=== PATIENT | male | born 1990 | race Hispanic/Latino ===

== ENCOUNTER 2016-07-18 23:06 | Emergency (ER) | payer OTHER ==
[2016-07-18 23:13] VITALS: BP 130/67; PULSE 92; RESP 16; TEMP 97.9; O2SAT 100
[2016-07-18 23:35] LABS: BASO # 0.1 K/uL (0.0-0.2); BASO % 0.7 % (0.0-2.0); EOS # 1.2 K/uL (0.0-0.7); EOS % 9.8 % (0.0-4.0); HEMATOCRIT 41.6 % (35.0-51.0); LYMPH # 4.8 K/uL (1.0-4.3); LYMPH % 39.1 % (20.0-40.0); MEAN CELL VOLUME 89.3 fl (80.0-94.0); MEAN CORPUSCULAR HEMOGLOBIN 30.7 pg (27.0-31.0); MEAN CORPUSCULAR HGB CONC 34.3 g/dL (33.0-37.0); MEAN PLATELET VOLUME 6.5 fl (7.2-11.7); MONO # 0.8 K/uL (0.0-0.8); MONO % 6.6 % (0.0-10.0); NEUT # 5.3 K/uL (1.8-7.0); NEUT % 43.8 % (50.0-75.0); RED CELL DISTRIBUTION WIDTH 13.7 % (11.5-14.5); WHITE BLOOD COUNT 12.2 K/uL (4.8-10.8)
[2016-07-18 23:44] LABS: ALB/GLOB RATIO 1.2 (1.0-2.1); ALKALINE PHOSPHATASE 78 U/L (38-126); ALT/SGPT 37 U/L (21-72); AST/SGOT 39 U/L (17-59); BILIRUBIN,TOTAL 0.4 mg/dl (0.2-1.3); BLOOD UREA NITROGEN 12 mg/dl (9-20); CALCIUM 9.6 mg/dL (8.4-10.2); CARBON DIOXIDE 24 mmol/L (22-30); CHLORIDE 105 mmol/L (98-107); GFR AFRICAN-AMERICAN > 60; GLUCOSE,RANDOM 104 mg/dL (75-110); POTASSIUM 3.8 MMOL/L (3.6-5.0); SODIUM 145 mmol/l (132-148); TOTAL PROTEIN 7.5 G/DL (6.3-8.2)
--- NOTE | 2016-07-19 00:49 | ED PDOC ---
HPI: Psych/Substance Abuse Time Seen by Provider: 07/18/16 23:13 Chief Complaint (Nursing): Alcohol Ingestion Chief Complaint (Provider): Alcohol Ingestion ED Caveat: Intoxicated History Per: EMS History/Exam Limitations: intoxication Onset/Duration Of Symptoms: Hrs Current Symptoms Are (Timing): Still Present Modifying Factor(s): Alcohol Severity: Moderate Additional Complaint(s): Fernando Boyd is a 24 year old male, with no pertinent past medical history , who presents to the emergency department via EMS due to public intoxication. EMS reports they found him sleeping on the sidewalk. HPI/ROS limited due to intoxication. PMD: none specified Past Medical History Reviewed: Historical Data, Nursing Documentation, Vital Signs Vital Signs: Last Vital Signs Temp 97.9 F 07/18/16 23:10 Pulse 92 H 07/18/16 23:10 Resp 16 07/18/16 23:10 BP 130/67 07/18/16 23:10 Pulse Ox 100 07/18/16 23:10 - Medical History PMH: No Chronic Diseases - Surgical History Surgical History: No Surg Hx - Family History Family History: States: Unknown Family Hx - Social History Alcohol: Occasional Drugs: Denies - Home Medications Home Medications: Ambulatory Orders Medication Instructions Recorded Unobtainable 07/18/16 - Allergies Allergies/Adverse Reactions: Allergies Allergy/AdvReac Type Severity Reaction Status Date / Time No Known Allergies Allergy Verified 07/19/16 05:55 Review of Systems Review Of Systems: ROS cannot be obtained secondary to pt's inabilty to answer questions. (intoxication) Neurological: Positive for: Incoordination, Change in Speech, Altered Mental Status (intoxication) Physical Exam - Reviewed Nursing Documentation Reviewed: Yes Vital Signs Reviewed: Yes - Physical Exam Appears: Positive for: No Acute Distress Head Exam: Positive for: ATRAUMATIC, NORMOCEPHALIC Skin: Positive for: Normal Color, Warm, Dry Eye Exam: Positive for: Normal appearance, EOMI, PERRL Neck: Positive for: Normal, Painless ROM Cardiovascular/Chest: Positive for: Regular Rate, Rhythm. Negative for: Murmur Respiratory: Positive for: Normal Breath Sounds. Negative for: Respiratory Distress Gastrointestinal/Abdominal: Positive for: Normal Exam, Soft. Negative for: Tenderness Neurologic/Psych: Positive for: Gait (unsteady), Other (somnolent, slurred speech, easily arousable). Negative for: Alert, Oriented - Laboratory Results Result Diagrams: 07/18/16 23:29 07/18/16 23:29 - ECG O2 Sat by Pulse Oximetry: 100 (RA) Pulse Ox Interpretation: Normal Medical Decision Making Medical Decision Makin:13 Initial Impression: 24 year old intoxicated male Initial Plan: * Alcohol Serum * CBC * CMP * Urine Drug Screen * Urine Dip * Accucheck * ED Observation * Reevaluation 23:37 Patient will be placed within ED Observation secondary to alcohol intoxication. Pending clinical sobriety. See Observation note for further updates. 05:46 Labs reviewed show no clinically significant abnormalities Upon provider reevaluation patient's condition improved, is awake, alert, and oriented (x3), has a steady gait, clear speech, is medically stable, and requires no further treatment in the emergency department at this time. Patient will be discharged home. Counseling was provided and all questions were answered regarding diagnosis. Patient is in agreement with the discharge plan. Clinical Impression: Alcohol intoxication Scribe Attestation: Documented by Loi Epps, acting as a scribe for Misael Sofia MD. Provider Scribe Attestation: All medical record entries made by the Scribe were at my direction and personally dictated by me. I have reviewed the chart and agree that the record accurately reflects my personal performance of the history, physical exam, medical decision making, and the department course for this patient. I have also personally directed, reviewed, and agree with the discharge instructions and disposition. ED OBSERVATION Date of observation admission: 07/19/16 Time of observation admission: 23:37 - Observation admission statement Patient is being placed in observation because:: Alcohol intoxication. - Goals of Observation Goals of observation are:: Pending clinical sobriety. Disposition - Clinical Impression Clinical Impression: Alcohol abuse with intoxication - Disposition Disposition: Routine/Home Disposition Time: 05:46 Condition: STABLE Instructions: Alcohol Intoxication (ED)
== END 2016-07-19 05:56 | disposition home or self-care (01) ==
LOC: MERGE 23:06 → H.ER 23:06 → EDBD 23:06 → H.ER 07-19 05:56
DX: F10.129 Alcohol abuse with intoxication, unspecified (principal)

== ENCOUNTER 2016-08-10 15:13 | Observation (INO) | payer MEDICAID, OTHER ==
[2016-08-10 15:13] VITALS: BMI 25.0
--- NOTE | 2016-08-10 15:28 | ED PDOC ---
HPI: Psych/Substance Abuse Time Seen by Provider: 08/10/16 15:24 Chief Complaint (Nursing): Alcohol Ingestion Chief Complaint (Provider): etoh History Per: Patient Additional Complaint(s): Patient arrives via ambulance for evaluation of acute etoh intoxication. Patient was found in a park and appeared intoxicated. He admits to drinking today. He denies any drug use. Patient offers no acute complaints upon arrival. Past Medical History Vital Signs: Last Vital Signs Temp 98.1 F 08/10/16 15:19 Pulse 105 H 08/10/16 15:19 Resp 22 08/10/16 15:19 BP 127/67 08/10/16 15:19 Pulse Ox 97 08/10/16 15:19 - Medical History PMH: Depression Denies: Arthritis, Chronic Kidney Disease - Family History Family History: States: Unknown Family Hx - Immunization History Hx Tetanus Toxoid Vaccination: No Hx Influenza Vaccination: No Hx Pneumococcal Vaccination: No - Home Medications Home Medications: Ambulatory Orders Medication Instructions Recorded Paroxetine HCl [Paxil] 40 mg PO DAILY 07/22/16 busPIRone [Buspar] 15 mg PO HS 07/22/16 - Allergies Allergies/Adverse Reactions: Allergies Allergy/AdvReac Type Severity Reaction Status Date / Time No Known Allergies Allergy Verified 08/10/16 15:19 - Laboratory Results Result Diagrams: 08/10/16 15:53 08/10/16 15:53 - ECG O2 Sat by Pulse Oximetry: 97 Pulse Ox Interpretation: Normal ED OBSERVATION Date of observation admission: 08/10/16 Time of observation admission: 16:45 - Observation admission statement Patient is being placed in observation because:: Acute etoh intoxication - Goals of Observation Goals of observation are:: Monitor patient in ED while intoxicated, pending sobriety. - Progress Note Progress Note: 08/10/16 18:00 Patient is asleep, he is arousable, vital signs are stable, patient offers no complaints at this time. Will continue to monitor. 08/10/16 19:45 Patient is sleeping, arousable, vital signs are stable, patient is still intoxicated, will continue to monitor. Disposition - Clinical Impression Clinical Impression: Alcohol intoxication - Patient ED Disposition Is Patient to be Admitted: Transfer of Care - Disposition Disposition: Transfer of Care Disposition Time: 20:00 Condition: FAIR Patient Signed Over To: Román,Mariel C Handoff Comments: Signed out pending sobriety and final disposition Results - Lab Results Lab Results: 08/10/16 08/10/16 15:53 15:53 WBC 7.5 RBC 5.07 Hgb 15.3 Hct 44.6 MCV 87.9 MCH 30.2 MCHC 34.4 RDW 13.5 Plt Count 235 D MPV 7.3 Neut % (Auto) 46.6 L Lymph % (Auto) 37.6 [place] % (Auto) 13.9 H Eos % (Auto) 1.2 Baso % (Auto) 0.7 Neut # 3.5 Lymph # 2.8 [place] # 1.0 H Eos # 0.1 Baso # 0.1 Sodium 146 Potassium 3.5 L Chloride 104 Carbon Dioxide 23 Anion Gap 23 H BUN 10 Creatinine 0.8 Est GFR ( Amer) > 60 Est GFR (Non-Af Amer) > 60 Random Glucose 94 Calcium 10.1 Total Bilirubin 0.6 AST 41 ALT 40 Alkaline Phosphatase 75 Total Protein 8.5 H Albumin 5.2 H D Globulin 3.3 Albumin/Globulin Ratio 1.6 Alcohol, Quantitative 283 H
[2016-08-10 16:36] LABS: BASO # 0.1 K/uL (0.0-0.2); BASO % 0.7 % (0.0-2.0); EOS # 0.1 K/uL (0.0-0.7); EOS % 1.2 % (0.0-4.0); HEMATOCRIT 44.6 % (35.0-51.0); LYMPH # 2.8 K/uL (1.0-4.3); LYMPH % 37.6 % (20.0-40.0); MEAN CELL VOLUME 87.9 fl (80.0-94.0); MEAN CORPUSCULAR HEMOGLOBIN 30.2 pg (27.0-31.0); MEAN CORPUSCULAR HGB CONC 34.4 g/dL (33.0-37.0); MEAN PLATELET VOLUME 7.3 fl (7.2-11.7); MONO % 13.9 % (0.0-10.0); NEUT # 3.5 K/uL (1.8-7.0); NEUT % 46.6 % (50.0-75.0); NRBC % 0.1 % (0.0-0.0); RED CELL DISTRIBUTION WIDTH 13.5 % (11.5-14.5); WHITE BLOOD COUNT 7.5 K/uL (4.8-10.8)
[2016-08-10 17:08] LABS: ALB/GLOB RATIO 1.6 (1.0-2.1); ALCOHOL SERUM 283 mg/dl (0-10); ALKALINE PHOSPHATASE 75 U/L (38-126); ALT/SGPT 40 U/L (21-72); AST/SGOT 41 U/L (17-59); BILIRUBIN,TOTAL 0.6 mg/dl (0.2-1.3); BLOOD UREA NITROGEN 10 mg/dl (9-20); CALCIUM 10.1 mg/dL (8.4-10.2); CARBON DIOXIDE 23 mmol/L (22-30); CHLORIDE 104 mmol/L (98-107); GFR AFRICAN-AMERICAN > 60; GLUCOSE,RANDOM 94 mg/dL (75-110); POTASSIUM 3.5 MMOL/L (3.6-5.0); SODIUM 146 mmol/l (132-148); TOTAL PROTEIN 8.5 G/DL (6.3-8.2)
--- NOTE | 2016-08-11 03:30 | ED PDOC ---
- Laboratory Results Result Diagrams: 08/10/16 15:53 08/10/16 15:53 - ECG O2 Sat by Pulse Oximetry: 97 - Progress ED Course And Treament: Case endorsed to screenplay writer from Samantha CARDENAS pending sobriety 22:00 Patient sleeping; no distress 00:00 Patinet sleeping; arousable to verbal stimuli 2:00 Patient sleeping; arousable to verbal stimuli 3:00 Patient awak, alert, oriented x3; ambulating steady gait. Tolerated PO Stable for discharge. Disposition - Clinical Impression Clinical Impression: Polysubstance abuse - POA Present On Arrival: None - Disposition Disposition: Routine/Home Disposition Time: 03:33 Condition: GOOD
[2016-08-11 03:39] VITALS: BP 126/79; PULSE 82; RESP 18; TEMP 98.4; O2SAT 99
== END 2016-08-11 03:42 | disposition home or self-care (01) ==
LOC: H.ER 15:13 → H.EROBSV 16:45
PROVIDERS: ADMIT Emergency Medicine; ATTEND Emergency Medicine
DX: F10.129 Alcohol abuse with intoxication, unspecified (principal); Z79.899 Other long term (current) drug therapy; F32.9 Major depressive disorder, single episode, unspecified; F19.10 Other psychoactive substance abuse, uncomplicated

== ENCOUNTER 2016-09-05 00:25 | Observation (INO) | payer MEDICAID, OTHER ==
[2016-09-05 00:25] VITALS: BMI 25.0
[2016-09-05 00:37] VITALS: BP 127/80; PULSE 89; RESP 16; TEMP 99; O2SAT 98
--- NOTE | 2016-09-05 01:13 | ED PDOC ---
HPI: Psych/Substance Abuse Time Seen by Provider: 09/05/16 00:37 Chief Complaint (Nursing): Alcohol Ingestion Chief Complaint (Provider): Alcohol Ingestion History Per: Patient, EMS History/Exam Limitations: no limitations Modifying Factor(s): Alcohol Severity: Moderate Additional Complaint(s): 26 year old male with no pertinent medical history is brought into the ED by EMS for alcohol ingestion. Patient was found outside sleeping by EMS. He admits to drinking EtOH today. He has no medical complaints at this time. Past Medical History Reviewed: Historical Data, Nursing Documentation, Vital Signs Vital Signs: Last Vital Signs Temp 99 F 09/05/16 00:34 Pulse 89 09/05/16 00:34 Resp 16 09/05/16 00:34 BP 127/80 09/05/16 00:34 Pulse Ox 98 09/05/16 00:34 - Medical History PMH: Depression Denies: Arthritis, Chronic Kidney Disease - Family History Family History: States: Unknown Family Hx - Social History Alcohol: Other (yes) Drugs: Denies - Immunization History Hx Tetanus Toxoid Vaccination: No Hx Influenza Vaccination: No Hx Pneumococcal Vaccination: No - Home Medications Home Medications: Ambulatory Orders Medication Instructions Recorded Paroxetine HCl [Paxil] 40 mg PO DAILY 07/22/16 busPIRone [Buspar] 15 mg PO HS 07/22/16 - Allergies Allergies/Adverse Reactions: Allergies Allergy/AdvReac Type Severity Reaction Status Date / Time No Known Allergies Allergy Verified 08/10/16 15:19 Review of Systems ROS Statement: Except As Marked, All Systems Reviewed And Found Negative Physical Exam - Reviewed Nursing Documentation Reviewed: Yes Vital Signs Reviewed: Yes - Physical Exam Appears: Positive for: Non-toxic, No Acute Distress. Negative for: Well ( patient is intoxicated. has slurred speech. alcohol on breath.) Head Exam: Positive for: ATRAUMATIC, NORMOCEPHALIC Skin: Positive for: Normal Color, Warm, Dry Cardiovascular/Chest: Positive for: Regular Rate, Rhythm Respiratory: Positive for: Normal Breath Sounds. Negative for: Respiratory Distress Neurologic/Psych: Positive for: Alert, Oriented (3x) - ECG O2 Sat by Pulse Oximetry: 98 (RA) Pulse Ox Interpretation: Normal Medical Decision Making Medical Decision Makin:37 Initial impression: 26 year old male is intoxicated. Initial plan: * alcohol serum * accucheck * reevaluation 00:58 Patient is being placed into ED observation pending sobriety. See ED observation note for further updates. Scribe Attestation: Documented by Sera Boone, acting as a scribe for Khanh Hampton Provider Scribe Attestation: All medical record entries made by the Scribe were at my direction and personally dictated by me. I have reviewed the chart and agree that the record accurately reflects my personal performance of the history, physical exam, medical decision making, and the department course for this patient. I have also personally directed, reviewed, and agree with the discharge instructions and disposition. ED OBSERVATION Date of observation admission: 09/03/16 Time of observation admission: 00:58 - Observation admission statement Patient is being placed in observation because:: Need for resolution of current symptoms. - Goals of Observation Goals of observation are:: Clinical sobriety. - Progress Note Progress Note: 09/05/16 02:13 Sleeping comfortably. No distress. 09/05/16 04:20 Still sleeping. 09/05/16 05:15 Gait steady unassisted. Clinically sober. Disposition - Clinical Impression Clinical Impression: Alcohol intoxication - Patient ED Disposition Is Patient to be Admitted: No - Disposition Disposition: Routine/Home Disposition Time: 05:15 Condition: IMPROVED
== END 2016-09-05 06:31 | disposition home or self-care (01) ==
LOC: H.ER 00:25 → H.EROBSV 00:58
PROVIDERS: ADMIT Emergency Medicine; ATTEND Emergency Medicine
DX: F10.129 Alcohol abuse with intoxication, unspecified (principal); Y90.8 Blood alcohol level of 240 mg/100 ml or more; F32.9 Major depressive disorder, single episode, unspecified

== ENCOUNTER 2016-09-19 01:59 | Emergency (ER) | payer OTHER ==
[2016-09-19 02:00] VITALS: BMI 25.0
--- NOTE | 2016-09-19 02:46 | ED PDOC ---
HPI: Psych/Substance Abuse Time Seen by Provider: 09/19/16 02:13 Chief Complaint (Nursing): Alcohol Ingestion ED Caveat: Acuity of Condition History Per: Patient, EMS History/Exam Limitations: intoxication Onset/Duration Of Symptoms: Days (1) Current Symptoms Are (Timing): Still Present Suicide/Self Injury Attempted (Context): None Modifying Factor(s): Alcohol Severity: Moderate Associated Symptoms: denies: Anger, Anxiety, Agitation, Depression, Paranoia, Suicidal Thoughts, Suicidal Plan Involuntary Hold By: None Additional History Per: EMS Additional Complaint(s): Pt BIBA for alcohol intoxication in public. Pt was found sleeping in DD. Pt admits to drinking tonight. History of ETOH abuse. Past Medical History Reviewed: Historical Data, Nursing Documentation, Vital Signs Vital Signs: Last Vital Signs Temp 98 F 09/19/16 02:03 Pulse 104 H 09/19/16 02:03 Resp 16 09/19/16 02:03 BP 136/80 09/19/16 02:03 Pulse Ox 96 09/19/16 02:03 - Medical History PMH: Depression Denies: Arthritis, Chronic Kidney Disease - Surgical History Surgical History: No Surg Hx - Family History Family History: States: Unknown Family Hx - Immunization History Hx Tetanus Toxoid Vaccination: No Hx Influenza Vaccination: No Hx Pneumococcal Vaccination: No - Home Medications Home Medications: Ambulatory Orders Medication Instructions Recorded Paroxetine HCl [Paxil] 40 mg PO DAILY 07/22/16 busPIRone [Buspar] 15 mg PO HS 07/22/16 No Known Home Med 09/12/16 - Allergies Allergies/Adverse Reactions: Allergies Allergy/AdvReac Type Severity Reaction Status Date / Time No Known Allergies Allergy Verified 09/09/16 21:43 Review of Systems Review Of Systems: ROS cannot be obtained secondary to pt's inabilty to answer questions. Physical Exam - Reviewed Nursing Documentation Reviewed: Yes Vital Signs Reviewed: Yes - Physical Exam Appears: Positive for: Non-toxic. Negative for: Uncomfortable, In Acute Distress Head Exam: Positive for: ATRAUMATIC Skin: Positive for: Warm, Dry Eye Exam: Positive for: EOMI, PERRL Cardiovascular/Chest: Positive for: Regular Rate, Rhythm. Negative for: Tachycardia Respiratory: Positive for: Normal Breath Sounds. Negative for: Wheezing Gastrointestinal/Abdominal: Positive for: Soft. Negative for: Tenderness Extremity: Positive for: Normal ROM Neurologic/Psych: Positive for: Other (obtunded). Negative for: Alert, Oriented - ECG O2 Sat by Pulse Oximetry: 96 Medical Decision Making Medical Decision Making: Impression Intoxication alcohol vs substance abuse Disposition - Clinical Impression Clinical Impression: Alcohol intoxication - Patient ED Disposition Is Patient to be Admitted: Transfer of Care Counseled Patient/Family Regarding: Studies Performed, Diagnosis - Disposition Disposition: Transfer of Care Disposition Time: 07:00 Condition: FAIR Instructions: Alcohol Intoxication (ED) Patient Signed Over To: Davin Goetz
--- NOTE | 2016-09-19 09:55 | ED PDOC ---
- ECG O2 Sat by Pulse Oximetry: 96 - Progress Re-evaluation Time: 09:54 Condition: Improved (Awake alert oriented x3 No focal neuro deficits) Disposition - Clinical Impression Clinical Impression: Alcohol intoxication - POA Present On Arrival: None - Disposition Disposition: Routine/Home Disposition Time: 09:55 Condition: FAIR Instructions: Alcohol Intoxication (ED)
[2016-09-19 11:11] VITALS: BP 123/67; PULSE 88; RESP 18; TEMP 98.2
[2016-09-21 07:17] VITALS: O2SAT 96
== END 2016-09-19 10:00 | disposition home or self-care (01) ==
LOC: H.ER 01:59
DX: F10.129 Alcohol abuse with intoxication, unspecified (principal)

== ENCOUNTER 2016-10-02 16:45 | Emergency (ER) | payer OTHER | END 2016-10-03 06:10 | disposition home or self-care (01) | LOC: H.ER 16:45 | DX: F10.129 Alcohol abuse with intoxication, unspecified (principal); F19.10 Other psychoactive substance abuse, uncomplicated ==

== ENCOUNTER 2016-10-07 11:55 | Emergency (ER) | payer OTHER ==
[2016-10-07 11:55] VITALS: BMI 25.0
[2016-10-07 12:03] VITALS: BP 122/70; PULSE 84; RESP 20; TEMP 97.6; O2SAT 98
--- NOTE | 2016-10-07 13:36 | ED PDOC ---
HPI: Psych/Substance Abuse Time Seen by Provider: 10/07/16 12:12 Chief Complaint (Nursing): Alcohol Ingestion Chief Complaint (Provider): Alcohol Ingestion History Per: Patient History/Exam Limitations: no limitations Onset/Duration Of Symptoms: Mins (prior to arrival ) Additional Complaint(s): Karmen Russell is a 26 year old male, with a previous medical history of depression, who presents to the ED via EMS for the evaluation of alcohol intoxication after being found sleeping on the sidewalk. Patient is unable to provide history secondary to intoxication. PMD: none provided Past Medical History Reviewed: Historical Data, Nursing Documentation, Vital Signs Vital Signs: Last Vital Signs Temp 97.6 F 10/07/16 12:00 Pulse 84 10/07/16 12:00 Resp 20 10/07/16 12:00 BP 122/70 10/07/16 12:00 Pulse Ox 98 10/07/16 12:00 - Medical History PMH: Depression Denies: Arthritis, Chronic Kidney Disease - Family History Family History: States: Unknown Family Hx - Social History Current smoker - smoking cessation education provided: Yes (>10 cigarettes per day ) Alcohol: > 2 Drinks/Day Drugs: Denies - Immunization History Hx Tetanus Toxoid Vaccination: No Hx Influenza Vaccination: No Hx Pneumococcal Vaccination: No - Home Medications Home Medications: Ambulatory Orders Medication Instructions Recorded Paroxetine HCl [Paxil] 40 mg PO DAILY 07/22/16 busPIRone [Buspar] 15 mg PO HS 07/22/16 No Known Home Med 09/12/16 - Allergies Allergies/Adverse Reactions: Allergies Allergy/AdvReac Type Severity Reaction Status Date / Time No Known Allergies Allergy Verified 09/09/16 21:43 Review of Systems Review Of Systems: ROS cannot be obtained secondary to pt's inabilty to answer questions. (alcohol intoxication) Physical Exam - Reviewed Nursing Documentation Reviewed: Yes Vital Signs Reviewed: Yes - Physical Exam Appears: Positive for: Non-toxic, No Acute Distress Head Exam: Positive for: ATRAUMATIC, NORMOCEPHALIC Skin: Positive for: Normal Color, Warm, Dry Eye Exam: Positive for: Normal appearance Neck: Positive for: Normal Cardiovascular/Chest: Positive for: Regular Rate, Rhythm Respiratory: Positive for: Normal Breath Sounds. Negative for: Respiratory Distress Extremity: Positive for: Normal ROM. Negative for: Deformity Neurologic/Psych: Positive for: Alert, Oriented, Gait (unsteady) - ECG O2 Sat by Pulse Oximetry: 98 (RA) Pulse Ox Interpretation: Normal Medical Decision Making Medical Decision Making: Initial Impression: Alcohol Intoxication Initial Plan: * Kierra [Glucose, Blood, POC] Stat * 1825 - Clear speech and steady gait Scribe Attestation: Documented by Brianna Hinojosa, acting as a scribe for Lachelle Fernandes PA-C. Provider Scribe Attestation: All medical record entries made by the Scribe were at my direction and personally dictated by me. I have reviewed the chart and agree that the record accurately reflects my personal performance of the history, physical exam, medical decision making, and the department course for this patient. I have also personally directed, reviewed, and agree with the discharge instructions and disposition. Disposition - Clinical Impression Clinical Impression: Alcohol abuse - Patient ED Disposition Is Patient to be Admitted: No Counseled Patient/Family Regarding: Diagnosis - Disposition Referrals: [facility] [Outside] Disposition: Routine/Home Disposition Time: 18:25 Condition: GOOD Instructions: Abuse of Alcohol (ED)
== END 2016-10-07 19:11 | disposition home or self-care (01) ==
LOC: H.ER 11:55
DX: F10.129 Alcohol abuse with intoxication, unspecified (principal); F17.210 Nicotine dependence, cigarettes, uncomplicated; F32.9 Major depressive disorder, single episode, unspecified

== ENCOUNTER 2016-10-07 23:50 | Observation (INO) | payer OTHER ==
[2016-10-08 00:01] VITALS: BMI 23.7
--- NOTE | 2016-10-08 00:01 | ED PDOC ---
HPI: Psych/Substance Abuse Time Seen by Provider: 10/08/16 00:01 Chief Complaint (Provider): etoh History Per: Patient, EMS Additional Complaint(s): 26 year old male presents to ED acutely intoxicated. He was found asleep in front of a building. Patient is responsive to painful stimuli upon arrival. He is well known to ED for frequent visits due to etoh intoxication. Past Medical History Reviewed: Historical Data, Nursing Documentation, Vital Signs - Medical History PMH: Depression - Family History Family History: States: No Known Family Hx - Living Arrangements Living Arrangements: Other (non-domiciled) - Social History Alcohol: > 2 Drinks/Day - Home Medications Home Medications: Ambulatory Orders Medication Instructions Recorded Paroxetine HCl [Paxil] 40 mg PO DAILY 07/22/16 busPIRone [Buspar] 15 mg PO HS 07/22/16 No Known Home Med 09/12/16 - Allergies Allergies/Adverse Reactions: Allergies Allergy/AdvReac Type Severity Reaction Status Date / Time No Known Allergies Allergy Verified 09/09/16 21:43 Review of Systems ROS Statement: Except As Marked, All Systems Reviewed And Found Negative Psych: Positive for: Other (etoh) Physical Exam - Reviewed Nursing Documentation Reviewed: Yes Vital Signs Reviewed: Yes - Physical Exam Appears: Positive for: Well, Non-toxic, No Acute Distress Skin: Negative for: Rash Eye Exam: Positive for: Normal appearance Cardiovascular/Chest: Positive for: Regular Rate, Rhythm Respiratory: Positive for: Normal Breath Sounds Neurologic/Psych: Positive for: Other (intoxicated, responds to painful stimuli) - ECG O2 Sat by Pulse Oximetry: 95 Pulse Ox Interpretation: Normal Medical Decision Making Medical Decision Making: Impression: acute etoh intoxication Plan: Admit to ED observation [facility] ED OBSERVATION Date of observation admission: 10/08/16 Time of observation admission: 00:02 - Observation admission statement Patient is being placed in observation because:: Acute etoh intoxication - Goals of Observation Goals of observation are:: Monitor vital signs and monitor for airway compromise while acutely intoxicated , pending sobriety and discharge. - Progress Note Progress Note: 10/08/16 12:30 Patient is asleep, vital signs stable. Patient responds to painful stimuli. BAL is 337, Fingerstick 99 10/08/16 2:30 Patient is asleep, vital signs stable. Patient responds to painful stimuli. 10/08/16 4:30 Patient is asleep, vital signs stable. Patient responds to painful stimuli. 10/08/16 5:10 Patient woke up, walked to bathroom with steady gait, he is awake and alert, stable for discharge Disposition - Clinical Impression Clinical Impression: Alcohol intoxication, Alcohol abuse - Patient ED Disposition Is Patient to be Admitted: No - Disposition Disposition: Routine/Home Disposition Time: 05:08 Condition: STABLE - POA Present On Arrival: None
[2016-10-08 00:04] VITALS: BP 104/54; PULSE 84; RESP 16; TEMP 97.4; O2SAT 95
== END 2016-10-08 05:47 | disposition home or self-care (01) ==
LOC: H.ER 23:50 → H.EROBSV 10-08 00:02
PROVIDERS: ADMIT Emergency Medicine; ATTEND Emergency Medicine
DX: F10.129 Alcohol abuse with intoxication, unspecified (principal); Y90.8 Blood alcohol level of 240 mg/100 ml or more

== ENCOUNTER 2016-10-11 15:15 | Observation (INO) | payer OTHER ==
[2016-10-11 15:15] VITALS: BMI 23.7
[2016-10-11 15:19] VITALS: RESP 18; TEMP 99
[2016-10-11] MEDS ORDERED: Multivitamin (MVI) 10 ML, Thiamine 100 MG, Folic Acid 1 MG in Sodium Chloride 0.9% 1,00... IV ONE (15:35)
[2016-10-11 16:08] LABS: BASO # 0.1 K/uL (0.0-0.2); BASO % 0.7 % (0.0-2.0); EOS # 0.1 K/uL (0.0-0.7); EOS % 1.9 % (0.0-4.0); HEMOGLOBIN 14.3 g/dL (12.0-18.0); LYMPH # 1.8 K/uL (1.0-4.3); LYMPH % 24.1 % (20.0-40.0); MEAN CORPUSCULAR HEMOGLOBIN 30.8 pg (27.0-31.0); MEAN CORPUSCULAR HGB CONC 34.1 g/dL (33.0-37.0); MEAN PLATELET VOLUME 6.2 fl (7.2-11.7); MONO # 0.4 K/uL (0.0-0.8); MONO % 5.3 % (0.0-10.0); NEUT # 5.1 K/uL (1.8-7.0); RBC 4.64 Mil/uL (4.40-5.90); RED CELL DISTRIBUTION WIDTH 14.2 % (11.5-14.5); WHITE BLOOD COUNT 7.5 K/uL (4.8-10.8)
--- NOTE | 2016-10-11 16:08 | ED PDOC ---
HPI: Psych/Substance Abuse Time Seen by Provider: 10/11/16 15:21 Chief Complaint (Nursing): Substance Abuse Chief Complaint (Provider): Substance Abuse History Per: Patient History/Exam Limitations: intoxication Onset/Duration Of Symptoms: Hrs (x 1 day) Current Symptoms Are (Timing): Still Present Additional History Per: EMS Additional Complaint(s): Hernán Russell is a 26-year-old non-domicile male with a history of depression who was brought to the emergency department via EMS after being found on the ground, likely intoxicated. Patient is well known to the provider for intoxication and homelessness with multiple visited. Patients reports consuming alcohol but denies depression, suicidal ideation, and overdosing on depression medications. He admits he may have taken an extra tab (of Buspar) to become intoxicated. Patient denies trauma. PMD: None Past Medical History Reviewed: Historical Data, Nursing Documentation, Vital Signs Vital Signs: Last Vital Signs Temp 99 F 10/11/16 15:18 Pulse 117 H 10/11/16 15:18 Resp 18 10/11/16 15:18 BP 133/85 10/11/16 15:18 Pulse Ox 98 10/11/16 15:18 - Medical History PMH: Depression Denies: Arthritis, Chronic Kidney Disease - Surgical History Surgical History: No Surg Hx - Family History Family History: States: Unknown Family Hx - Social History Current smoker - smoking cessation education provided: Yes Alcohol: > 2 Drinks/Day Drugs: Denies - Immunization History Hx Tetanus Toxoid Vaccination: No Hx Influenza Vaccination: No Hx Pneumococcal Vaccination: No - Home Medications Home Medications: Ambulatory Orders Medication Instructions Recorded Paroxetine HCl [Paxil] 40 mg PO DAILY 07/22/16 busPIRone [Buspar] 15 mg PO HS 07/22/16 - Allergies Allergies/Adverse Reactions: Allergies Allergy/AdvReac Type Severity Reaction Status Date / Time No Known Allergies Allergy Verified 10/13/16 17:08 Review of Systems Review Of Systems: ROS cannot be obtained secondary to pt's inabilty to answer questions. (History unreliable due to intoxication but able to answer questions) Physical Exam - Reviewed Nursing Documentation Reviewed: Yes Vital Signs Reviewed: Yes - Physical Exam Appears: Positive for: No Acute Distress (disheveled, malodorous, covered in dirt ) Head Exam: Positive for: ATRAUMATIC, NORMAL INSPECTION, NORMOCEPHALIC Skin: Positive for: Normal Color, Warm, Dry Eye Exam: Positive for: EOMI, PERRL, Conjunctival injection, Other (Pupils are large, about 7 mm). Negative for: Nystagmus ENT: Positive for: Pharynx Is (clear with poor dentition), Other (Tacky mucous membranes ) Neck: Positive for: Normal, Painless ROM, Supple Cardiovascular/Chest: Positive for: Tachycardia (Regular rhythm). Negative for : Murmur Respiratory: Positive for: Normal Breath Sounds. Negative for: Accessory Muscle Use, Respiratory Distress Gastrointestinal/Abdominal: Positive for: Normal Exam, Soft. Negative for: Tenderness Back: Positive for: Normal Inspection. Negative for: L CVA Tenderness, R CVA Tenderness Extremity: Positive for: Normal ROM. Negative for: Pedal Edema Neurologic/Psych: Positive for: Alert (Sleepy but easily arousable with slurred speech), Oriented. Negative for: Motor/Sensory Deficits - Laboratory Results Result Diagrams: 10/11/16 16:02 10/11/16 16:02 - ECG O2 Sat by Pulse Oximetry: 98 (RA) Pulse Ox Interpretation: Normal Medical Decision Making Medical Decision Making: Time: 15:26 Initial impression: Intoxication Initial plan: --ECG --Acetaminophen --CMP --Urine Drug Screen --Magnesium --Phosphorous --Salicylate --ED Urine dipstick --CBC --Partial Thromboplastin Time --Prothrombin Time --Admit to observation for intoxication Scribe Attestation: Documented by Sarita Harkins, acting as a scribe for Sandra Killian MD. Provider Scribe Attestation: All medical record entries made by the Scribe were at my direction and personally dictated by me. I have reviewed the chart and agree that the record accurately reflects my personal performance of the history, physical exam, medical decision making, and the department course for this patient. I have also personally directed, reviewed, and agree with the discharge instructions and disposition. ED OBSERVATION Date of observation admission: 10/11/16 Time of observation admission: 15:38 - Observation admission statement Patient is being placed in observation because:: Intoxication - Goals of Observation Goals of observation are:: To reach clinical sobriety - Progress Note Progress Note: 10/11/16 16:02 --Alcohol, Quantitative: 295 1900 Sleeping deeply 2200 Easily arousable. Ambulating without difficulty. No signs of withdrawal. Disposition - Clinical Impression Clinical Impression: Alcohol abuse - Disposition Disposition Time: 15:30 Condition: IMPROVED
[2016-10-11 16:25] LABS: GFR AFRICAN-AMERICAN > 60; GFR NON-AFRICAN AMERICAN > 60
[2016-10-11 16:26] LABS: ALT/SGPT 67 U/L (21-72); AST/SGOT 70 U/L (17-59); BLOOD UREA NITROGEN 8 mg/dl (9-20); CALCIUM 9.4 mg/dL (8.4-10.2)
[2016-10-11 16:27] LABS: MAGNESIUM 2.5 MG/DL (1.6-2.3); PARTIAL THROMBOPLASTIN TIME 31.3 Seconds (25.6-37.1); PROTHROMBIN TIME 11.2 Seconds (9.8-13.1)
[2016-10-11 16:37] LABS: MEAN CELL VOLUME 90.4 fl (80.0-94.0)
[2016-10-11 17:10] LABS: SALICYLATE < 1.0 mg/dl
[2016-10-11 17:14] LABS: ACETAMINOPHEN < 10.0 ug/ml (10.0-30.0)
[2016-10-11 18:24] VITALS: BP 132/78; PULSE 85
--- NOTE | 2016-10-12 08:21 | CARD ---
APPROVED REPORT EKG Measurement Heart [id number] <Conclusion> Normal sinus rhythm Normal ECG
[2016-10-13 18:10] VITALS: O2SAT 98
== END 2016-10-11 22:33 | disposition home or self-care (01) ==
LOC: H.ER 15:15 → H.EROBSV 15:38
PROVIDERS: ADMIT Emergency Medicine; ATTEND Emergency Medicine
DX: F10.129 Alcohol abuse with intoxication, unspecified (principal); Y90.8 Blood alcohol level of 240 mg/100 ml or more; Z59.0 Homelessness; F17.200 Nicotine dependence, unspecified, uncomplicated

== ENCOUNTER 2016-10-12 12:11 | Observation (INO) | payer OTHER ==
[2016-10-12 12:11] VITALS: BMI 23.7
[2016-10-12 12:30] VITALS: O2SAT 99
--- NOTE | 2016-10-12 13:26 | ED PDOC ---
HPI: Psych/Substance Abuse Time Seen by Provider: 10/12/16 12:31 Chief Complaint (Nursing): Medical Clearance Chief Complaint (Provider): Medical clearance ED Caveat: Intoxicated History Per: Other (police ) History/Exam Limitations: intoxication Onset/Duration Of Symptoms: Unknown Additional Complaint(s): Hernán Russell is a 26 year old male, with a previous medical history of depression as per previous charts reviewed, who presents to the ED via police to be medically cleared for incarceration. Patient was found to be intoxicated in the park and had warrants out for his arrest. Patient is unable to provide history secondary to alcohol intoxication. PMD: none provided Past Medical History Reviewed: Historical Data, Nursing Documentation, Vital Signs Vital Signs: Last Vital Signs Temp 98.5 F 10/12/16 12:28 Pulse 82 10/12/16 12:28 Resp 18 10/12/16 12:28 BP 127/84 10/12/16 12:28 Pulse Ox 99 10/12/16 12:28 - Medical History PMH: Depression Denies: Arthritis, Chronic Kidney Disease - Family History Family History: States: Unknown Family Hx - Immunization History Hx Tetanus Toxoid Vaccination: No Hx Influenza Vaccination: No Hx Pneumococcal Vaccination: No - Home Medications Home Medications: Ambulatory Orders Medication Instructions Recorded Paroxetine HCl [Paxil] 40 mg PO DAILY 07/22/16 busPIRone [Buspar] 15 mg PO HS 07/22/16 - Allergies Allergies/Adverse Reactions: Allergies Allergy/AdvReac Type Severity Reaction Status Date / Time No Known Allergies Allergy Verified 10/13/16 17:08 Review of Systems Review Of Systems: ROS cannot be obtained secondary to pt's inabilty to answer questions. Physical Exam - Reviewed Nursing Documentation Reviewed: Yes Vital Signs Reviewed: Yes - Physical Exam Appears: Positive for: Well, Non-toxic, No Acute Distress Head Exam: Positive for: ATRAUMATIC, NORMAL INSPECTION, NORMOCEPHALIC Skin: Positive for: Normal Color, Warm, Dry Cardiovascular/Chest: Positive for: Regular Rate, Rhythm Respiratory: Positive for: Normal Breath Sounds. Negative for: Respiratory Distress - ECG O2 Sat by Pulse Oximetry: 99 (RA) Pulse Ox Interpretation: Normal Medical Decision Making Medical Decision Making: Initial Impression: Alcohol intoxication Initial Plan: * alcohol serum * ED observation * reevaluation Scribe Attestation: Documented by Bushra Dubon, acting as a scribe for Bushra Hancock MD. Provider Scribe Attestation: All medical record entries made by the Scribe were at my direction and personally dictated by me. I have reviewed the chart and agree that the record accurately reflects my personal performance of the history, physical exam, medical decision making, and the department course for this patient. I have also personally directed, reviewed, and agree with the discharge instructions and disposition. ED OBSERVATION Date of observation admission: 10/12/16 Time of observation admission: 13:25 - Observation admission statement Patient is being placed in observation because:: alcohol intoxication - Goals of Observation Goals of observation are:: clinical sobriety Disposition - Clinical Impression Clinical Impression: Alcohol intoxication - Disposition Disposition: Transfer of Care Disposition Time: 17:00 Condition: STABLE Patient Signed Over To: Sandra Killian Handoff Comments: Pending sobriety.
[2016-10-12 16:23] VITALS: BP 124/82; PULSE 79; RESP 20; TEMP 97.6
--- NOTE | 2016-10-12 17:21 | ED PDOC ---
- ECG O2 Sat by Pulse Oximetry: 99 (RA) Pulse Ox Interpretation: Normal Medical Decision Making Medical Decision Makin:20 Patient signed over pending sobriety 1999 Sleeping easily arousable. Had eaten dinner but was unstead. 2199 Sleeping easily arousable. Amdulates without difficulty with no signs of withdrawal Scribe Attestation: Documented by Brianna Hinojosa, acting as a scribe for Sandra Killian MD. Provider Scribe Attestation: All medical record entries made by the Scribe were at my direction and personally dictated by me. I have reviewed the chart and agree that the record accurately reflects my personal performance of the history, physical exam, medical decision making, and the department course for this patient. I have also personally directed, reviewed, and agree with the discharge instructions and disposition. Disposition - Clinical Impression Clinical Impression: Alcohol abuse - POA Present On Arrival: Falls Or Trauma - Disposition Disposition: Routine/Home Disposition Time: 13:00 Condition: IMPROVED
== END 2016-10-12 22:07 | disposition home or self-care (01) ==
LOC: H.ER 12:11 → H.EROBSV 13:00
PROVIDERS: ADMIT Emergency Medicine; ATTEND Emergency Medicine
DX: F10.129 Alcohol abuse with intoxication, unspecified (principal); Y90.8 Blood alcohol level of 240 mg/100 ml or more; F32.9 Major depressive disorder, single episode, unspecified

== ENCOUNTER 2016-10-13 09:48 | Observation (INO) | payer MEDICAID, OTHER ==
[2016-10-13 09:49] VITALS: BMI 23.7
[2016-10-13 09:58] VITALS: O2SAT 98
--- NOTE | 2016-10-13 10:19 | ED PDOC ---
HPI: Psych/Substance Abuse Time Seen by Provider: 10/13/16 09:57 Chief Complaint (Nursing): Alcohol Ingestion History Per: Patient Additional Complaint(s): acc to [facility] pt was found in the streets with strong ETOH. chronic ED visits for same problem Past Medical History Reviewed: Nursing Documentation, Vital Signs Vital Signs: Last Vital Signs Temp Pulse Resp BP Pulse Ox 98 10/13/16 09:54 - Medical History PMH: Anxiety, Back Problems, Fractures, Gastritis Denies: HIV, HTN, Chronic Kidney Disease, Seizures, Sexually Transmitted Disease - Family History Family History: States: Unknown Family Hx - Social History Alcohol: > 2 Drinks/Day - Immunization History Hx Tetanus Toxoid Vaccination: No Hx Influenza Vaccination: No Hx Pneumococcal Vaccination: No - Home Medications Home Medications: Ambulatory Orders Medication Instructions Recorded Famotidine [Pepcid] 20 mg PO BID #28 tab 09/12/16 Ondansetron [Zofran] 4 mg PO Q8H #9 tab 09/12/16 Ketorolac Tromethamine [Toradol] 10 mg PO TID #20 cap 09/13/16 - Allergies Allergies/Adverse Reactions: Allergies Allergy/AdvReac Type Severity Reaction Status Date / Time No Known Allergies Allergy Unverified 10/13/16 09:54 Review of Systems ROS Statement: Except As Marked, All Systems Reviewed And Found Negative Physical Exam - Reviewed Nursing Documentation Reviewed: Yes Vital Signs Reviewed: Yes - Physical Exam Appears: Positive for: Well, Non-toxic, No Acute Distress Head Exam: Positive for: ATRAUMATIC, NORMAL INSPECTION, NORMOCEPHALIC Skin: Positive for: Normal Color, Warm, DRY Eye Exam: Positive for: EOMI, Normal appearance, PERRL ENT: Positive for: Normal ENT Inspection Neck: Positive for: Normal, Painless ROM Cardiovascular/Chest: Positive for: Regular Rate, Rhythm Respiratory: Positive for: CNT, Normal Breath Sounds Gastrointestinal/Abdominal: Positive for: Normal Exam, Bowel Sounds, Soft Back: Positive for: Normal Inspection Extremity: Positive for: Normal ROM Neurologic/Psych: Positive for: Alert, Oriented - Laboratory Results Result Diagrams: 10/13/16 10:21 10/13/16 10:21 - ECG O2 Sat by Pulse Oximetry: 98 Medical Decision Making Medical Decision Making: Diagnostics ordered ETOH 377 pt monitored in ED while he slept. 1500- Awake and alert, stable for discharge Disposition - Clinical Impression Clinical Impression: Alcohol intoxication - Disposition Disposition: Routine/Home Disposition Time: 15:15 Condition: STABLE
[2016-10-13 10:41] LABS: BASO % 0.8 % (0.0-2.0); EOS # 0.2 K/uL (0.0-0.7); EOS % 2.9 % (0.0-4.0); HEMOGLOBIN 14.3 g/dL (12.0-18.0); LYMPH # 1.6 K/uL (1.0-4.3); LYMPH % 29.8 % (20.0-40.0); MEAN CELL VOLUME 90.2 fl (80.0-94.0); MEAN CORPUSCULAR HEMOGLOBIN 30.9 pg (27.0-31.0); MEAN CORPUSCULAR HGB CONC 34.2 g/dL (33.0-37.0); MEAN PLATELET VOLUME 6.1 fl (7.2-11.7); MONO # 0.5 K/uL (0.0-0.8); MONO % 9.3 % (0.0-10.0); NEUT # 3.2 K/uL (1.8-7.0); NEUT % 57.2 % (50.0-75.0); RBC 4.64 Mil/uL (4.40-5.90); RED CELL DISTRIBUTION WIDTH 14.3 % (11.5-14.5); WHITE BLOOD COUNT 5.5 K/uL (4.8-10.8)
[2016-10-13 10:51] LABS: ALB/GLOB RATIO 1.2 (1.0-2.1); ALBUMIN 4.4 g/dL (3.5-5.0); ALT/SGPT 78 U/L (21-72); AST/SGOT 81 U/L (17-59); BLOOD UREA NITROGEN 10 mg/dl (9-20); CALCIUM 9.5 mg/dL (8.4-10.2); GFR AFRICAN-AMERICAN > 60; GFR NON-AFRICAN AMERICAN > 60
[2016-10-13 15:32] VITALS: BP 122/75; PULSE 75; RESP 16
== END 2016-10-13 15:50 | disposition home or self-care (01) ==
LOC: EDBD → H.ER 09:48 → EDUNIT# 10:12 → H.EROBSV 10:12
PROVIDERS: ADMIT Emergency Medicine; ATTEND Emergency Medicine
DX: F10.129 Alcohol abuse with intoxication, unspecified (principal); Y90.8 Blood alcohol level of 240 mg/100 ml or more; F41.9 Anxiety disorder, unspecified; K29.70 Gastritis, unspecified, without bleeding

== ENCOUNTER 2016-10-13 17:03 | Emergency (ER) | payer OTHER ==
[2016-10-13 17:03] VITALS: BMI 23.7
[2016-10-13 17:10] VITALS: BP 132/80; PULSE 97; RESP 16; TEMP 98.1; O2SAT 99
--- NOTE | 2016-10-13 19:58 | ED PDOC ---
HPI: Psych/Substance Abuse Time Seen by Provider: 10/13/16 17:04 Chief Complaint (Nursing): Alcohol Ingestion Chief Complaint (Provider): EOTH History Per: Patient History/Exam Limitations: no limitations Current Symptoms Are (Timing): Still Present Modifying Factor(s): Alcohol Past Medical History Reviewed: Historical Data, Nursing Documentation, Vital Signs Vital Signs: Last Vital Signs Temp 98.1 F 10/13/16 17:08 Pulse 97 H 10/13/16 17:08 Resp 16 10/13/16 17:08 BP 132/80 10/13/16 17:08 Pulse Ox 99 10/13/16 17:08 - Medical History PMH: Depression Denies: Arthritis, Chronic Kidney Disease - Surgical History Surgical History: No Surg Hx - Family History Family History: States: Unknown Family Hx - Living Arrangements Living Arrangements: With Family - Social History Alcohol: > 2 Drinks/Day - Immunization History Hx Tetanus Toxoid Vaccination: No Hx Influenza Vaccination: No Hx Pneumococcal Vaccination: No - Home Medications Home Medications: Ambulatory Orders Medication Instructions Recorded Paroxetine HCl [Paxil] 40 mg PO DAILY 07/22/16 busPIRone [Buspar] 15 mg PO HS 07/22/16 - Allergies Allergies/Adverse Reactions: Allergies Allergy/AdvReac Type Severity Reaction Status Date / Time No Known Allergies Allergy Verified 10/13/16 17:08 Review of Systems ROS Statement: Except As Marked, All Systems Reviewed And Found Negative Cardiovascular: Negative for: Chest Pain Respiratory: Negative for: Shortness of Breath Physical Exam - Reviewed Nursing Documentation Reviewed: Yes Vital Signs Reviewed: Yes - Physical Exam Appears: Positive for: Well, Non-toxic, No Acute Distress Head Exam: Positive for: ATRAUMATIC, NORMAL INSPECTION, NORMOCEPHALIC Skin: Positive for: Normal Color, Warm, DRY Eye Exam: Positive for: Normal appearance ENT: Positive for: Normal ENT Inspection Neck: Positive for: Normal, Painless ROM Cardiovascular/Chest: Positive for: Regular Rate, Rhythm Respiratory: Positive for: Normal Breath Sounds. Negative for: Accessory Muscle Use, Respiratory Distress Back: Positive for: Normal Inspection Extremity: Positive for: Normal ROM Neurologic/Psych: Positive for: Alert, Oriented - ECG O2 Sat by Pulse Oximetry: 99 Medical Decision Making Medical Decision Making: Pt drank juice in ER. Disposition - Clinical Impression Clinical Impression: Alcohol abuse - Patient ED Disposition Is Patient to be Admitted: No Counseled Patient/Family Regarding: Diagnosis, Need For Followup - Disposition Disposition: Routine/Home Disposition Time: 19:57 Condition: GOOD Instructions: Abuse of Alcohol (ED)
== END 2016-10-13 19:20 | disposition home or self-care (01) ==
LOC: H.ER 17:03
DX: F10.10 Alcohol abuse, uncomplicated (principal); F32.9 Major depressive disorder, single episode, unspecified

== ENCOUNTER 2016-10-16 15:50 | Emergency (ER) | payer OTHER ==
[2016-10-16 15:50] VITALS: BMI 23.7
--- NOTE | 2016-10-16 16:36 | ED PDOC ---
HPI: Psych/Substance Abuse Time Seen by Provider: 10/16/16 16:02 Chief Complaint (Nursing): Alcohol Ingestion Chief Complaint (Provider): Alcohol Ingestion History Per: EMS History/Exam Limitations: no limitations Onset/Duration Of Symptoms: Hrs (prior to arrival ) Additional Complaint(s): Hernán Russell, 26 year old male brought in by EMS presents to the ED for alcohol intoxication. As per EMS, the patient was found in the park intoxicated. PMD: None provided Past Medical History Reviewed: Historical Data, Nursing Documentation, Vital Signs Vital Signs: Last Vital Signs Temp 99.1 F 10/16/16 15:56 Pulse 105 H 10/16/16 15:56 Resp 17 10/16/16 15:56 BP 128/72 10/16/16 15:56 Pulse Ox 97 10/16/16 15:56 - Medical History PMH: Anxiety, Back Problems, Depression, Fractures, Gastritis Denies: Arthritis, HIV, HTN, Chronic Kidney Disease, Seizures, Sexually Transmitted Disease - Family History Family History: States: Unknown Family Hx - Social History Current smoker - smoking cessation education provided: Yes Alcohol: Other Drugs: Denies - Immunization History Hx Tetanus Toxoid Vaccination: No Hx Influenza Vaccination: No Hx Pneumococcal Vaccination: No - Home Medications Home Medications: Ambulatory Orders Medication Instructions Recorded Paroxetine HCl [Paxil] 40 mg PO DAILY 07/22/16 busPIRone [Buspar] 15 mg PO HS 07/22/16 - Allergies Allergies/Adverse Reactions: Allergies Allergy/AdvReac Type Severity Reaction Status Date / Time No Known Allergies Allergy Verified 10/16/16 15:55 Review of Systems Review Of Systems: ROS cannot be obtained secondary to pt's inabilty to answer questions. (alcohol intoxication) Physical Exam - Reviewed Nursing Documentation Reviewed: Yes Vital Signs Reviewed: Yes - Physical Exam Appears: Positive for: Well, Non-toxic, No Acute Distress Head Exam: Positive for: ATRAUMATIC, NORMAL INSPECTION, NORMOCEPHALIC Neurologic/Psych: Positive for: Other (intoxicated ) - ECG O2 Sat by Pulse Oximetry: 97 (RA) Pulse Ox Interpretation: Normal Medical Decision Making Medical Decision Making: Impression: Alcohol intoxication Plan: * Glucose, Blood, POC Stat * Patient intoxicated, will remain in ED until stable for discharge Scribe Attestation: Documented by Brianna Hinojosa, acting as a scribe for Silvia Marte PA-C. Provider Scribe Attestation: All medical record entries made by the Scribe were at my direction and personally dictated by me. I have reviewed the chart and agree that the record accurately reflects my personal performance of the history, physical exam, medical decision making, and the department course for this patient. I have also personally directed, reviewed, and agree with the discharge instructions and disposition. Disposition - Clinical Impression Clinical Impression: Alcohol intoxication - Patient ED Disposition Is Patient to be Admitted: No - Disposition Disposition: Routine/Home Disposition Time: 21:38 Condition: STABLE
[2016-10-16 21:27] VITALS: BP 105/61; PULSE 72; RESP 16; TEMP 98.2
[2016-10-16 21:48] VITALS: O2SAT 97
== END 2016-10-16 22:13 | disposition home or self-care (01) ==
LOC: H.ER 15:50
DX: F10.10 Alcohol abuse, uncomplicated (principal)

== ENCOUNTER 2016-10-20 23:12 | Emergency (ER) | payer OTHER ==
[2016-10-20 23:12] VITALS: BMI 23.7
[2016-10-20 23:21] VITALS: BP 124/75; PULSE 94; RESP 16; TEMP 98.1; O2SAT 96
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
--- NOTE | 2016-10-21 09:38 | RAD ---
PROCEDURE: Radiographs of the left elbow. HISTORY: injury COMPARISON: No prior. FINDINGS: BONES: Normal. No fracture. JOINTS: Normal. No osteoarthritis. SOFT TISSUES: Normal. JOINT EFFUSION: None. OTHER FINDINGS: None IMPRESSION: Unremarkable radiographs of the left elbow.
== END 2016-10-21 05:47 | disposition home or self-care (01) ==
LOC: H.ER 23:12
DX: F10.10 Alcohol abuse, uncomplicated (principal); S40.819A Abrasion of unspecified upper arm, initial encounter; Y04.0XXA Assault by unarmed brawl or fight, initial encounter; Y92.89 Other specified places as the place of occurrence of the external cause; F32.9 Major depressive disorder, single episode, unspecified; F41.9 Anxiety disorder, unspecified

== ENCOUNTER 2016-11-10 18:20 | Observation (INO) | payer OTHER ==
[2016-11-10 18:20] VITALS: BMI 22.7
[2016-11-10 18:25] VITALS: O2SAT 96
--- NOTE | 2016-11-10 18:36 | ED PDOC ---
HPI: Psych/Substance Abuse Time Seen by Provider: 11/10/16 18:31 Chief Complaint (Nursing): Alcohol Ingestion Chief Complaint (Provider): etoh History Per: Patient, EMS Additional Complaint(s): BIBA for etoh. Patient was found intoxicated in the street and was brought here for eval. Patient offers no acute complaints. Past Medical History Reviewed: Historical Data, Nursing Documentation, Vital Signs Vital Signs: Last Vital Signs Temp 98.6 F 11/10/16 18:22 Pulse 95 H 11/10/16 18:22 Resp 16 11/10/16 18:22 BP 131/75 11/10/16 18:22 Pulse Ox 96 11/10/16 18:22 - Medical History PMH: Anxiety, Back Problems, Depression, Fractures, Gastritis - Family History Family History: States: No Known Family Hx - Living Arrangements Living Arrangements: Other (non domiciled) - Social History Current smoker - smoking cessation education provided: Yes Alcohol: > 2 Drinks/Day - Home Medications Home Medications: Ambulatory Orders Medication Instructions Recorded Paroxetine HCl [Paxil] 40 mg PO DAILY 07/22/16 busPIRone [Buspar] 15 mg PO HS 07/22/16 - Allergies Allergies/Adverse Reactions: Allergies Allergy/AdvReac Type Severity Reaction Status Date / Time No Known Allergies Allergy Verified 11/09/16 17:11 Review of Systems ROS Statement: Except As Marked, All Systems Reviewed And Found Negative Psych: Positive for: Other (etoh) Physical Exam - Reviewed Nursing Documentation Reviewed: Yes Vital Signs Reviewed: Yes - Physical Exam Appears: Positive for: Well, Non-toxic, No Acute Distress Skin: Negative for: Rash Eye Exam: Positive for: Normal appearance Cardiovascular/Chest: Positive for: Regular Rate, Rhythm Respiratory: Positive for: Normal Breath Sounds Extremity: Positive for: Normal ROM. Negative for: Pedal Edema Neurologic/Psych: Positive for: Alert, Other (intoxicated, answers some questions appropriately) - ECG O2 Sat by Pulse Oximetry: 96 Pulse Ox Interpretation: Normal Medical Decision Making Medical Decision Makin26 year old intoxicated male Plan: Glucose POC BAL Admit to ED observation Glucose POC: 139 ED OBSERVATION Date of observation admission: 11/10/16 Time of observation admission: 19:51 - Observation admission statement Patient is being placed in observation because:: AMS due to etoh intoxication - Goals of Observation Goals of observation are:: Monitor vital signs and airway while acutely intoxicated, pending sobriety - Progress Note Progress Note: 11/10/16 19:52 BAL is 359, patient is asleep, arousable, vital signs stable, will continue to monitor 11/10/16 21:55 Patient is asleep, no airway compromise, he is arousable, vital signs stable 11/10/16 23:25 Patient is awake, alert, tolerated juice and sandwich in ED. He is ambulatory with steady gait and is stable for discharge. Disposition - Clinical Impression Clinical Impression: Alcohol intoxication Counseled Patient/Family Regarding: Diagnosis, Need For Followup - Disposition Disposition: Routine/Home Disposition Time: 23:26 Condition: STABLE
[2016-11-10 23:50] VITALS: BP 108/68; PULSE 84; RESP 17; TEMP 98
== END 2016-11-10 23:25 | disposition home or self-care (01) ==
LOC: H.ER 18:20 → H.EROBSV 19:50
PROVIDERS: ADMIT Emergency Medicine; ATTEND Emergency Medicine
DX: F10.129 Alcohol abuse with intoxication, unspecified (principal); Y90.8 Blood alcohol level of 240 mg/100 ml or more; F41.9 Anxiety disorder, unspecified; K29.70 Gastritis, unspecified, without bleeding; F17.200 Nicotine dependence, unspecified, uncomplicated

== ENCOUNTER 2016-11-12 11:49 | Observation (INO) | payer OTHER ==
[2016-11-12 11:52] VITALS: RESP 16; BMI 23.6
--- NOTE | 2016-11-12 12:16 | ED PDOC ---
HPI: Psych/Substance Abuse Time Seen by Provider: 11/12/16 11:52 Chief Complaint (Nursing): Alcohol Ingestion History Per: EMS Additional Complaint(s): As per EMS [place] [employer] found pt. sleeping in park and was unable to walk on his own. Pt. admits to drinking alcohol. Offers no complaints at this time. Requesting food. Past Medical History Reviewed: Historical Data, Nursing Documentation, Vital Signs Vital Signs: Last Vital Signs Temp 97.9 F 11/12/16 11:51 Pulse 93 H 11/12/16 11:51 Resp 16 11/12/16 11:51 BP 126/79 11/12/16 11:51 Pulse Ox 96 11/12/16 11:51 - Medical History PMH: Anxiety, Back Problems, Depression, Fractures, Gastritis - Family History Family History: States: No Known Family Hx - Home Medications Home Medications: Ambulatory Orders Medication Instructions Recorded Paroxetine HCl [Paxil] 40 mg PO DAILY 07/22/16 busPIRone [Buspar] 15 mg PO HS 07/22/16 - Allergies Allergies/Adverse Reactions: Allergies Allergy/AdvReac Type Severity Reaction Status Date / Time No Known Allergies Allergy Verified 11/12/16 12:21 - ECG O2 Sat by Pulse Oximetry: 96 ED OBSERVATION Discharge: Yes Date of observation admission: 11/12/16 Time of observation admission: 12:10 - Observation admission statement Patient is being placed in observation because:: ETOH - Goals of Observation Goals of observation are:: sobriety - Progress Note Progress Note: 11/12/16 12:16 FSBS: 105 11/12/16 13:33 ETOH: 343 11/12/16 15:33 Sleeping comfortably and in no distress. 11/12/16 18:22 No distress. Requesting to be discharged. Gait steady and unassisted. No slurred speech. Disposition - Clinical Impression Clinical Impression: Alcohol intoxication - Patient ED Disposition Is Patient to be Admitted: No - Disposition Disposition: Routine/Home Disposition Time: 18:23 Condition: IMPROVED
[2016-11-12 17:33] VITALS: BP 105/58; PULSE 83; TEMP 97.6
[2016-11-12 18:24] VITALS: O2SAT 96
== END 2016-11-12 18:40 | disposition home or self-care (01) ==
LOC: H.ER 11:49 → H.ERHOLD 12:03 → H.EROBSV 12:31
PROVIDERS: ADMIT Emergency Medicine; ATTEND Emergency Medicine
DX: F10.129 Alcohol abuse with intoxication, unspecified (principal); Y90.8 Blood alcohol level of 240 mg/100 ml or more; F41.9 Anxiety disorder, unspecified; K29.70 Gastritis, unspecified, without bleeding; F32.9 Major depressive disorder, single episode, unspecified

== ENCOUNTER 2016-11-12 23:05 | Observation (INO) | payer OTHER ==
[2016-11-12 23:05] VITALS: BMI 23.6
[2016-11-12 23:08] VITALS: BP 118/82; PULSE 84; RESP 16; TEMP 97.4; O2SAT 100
--- NOTE | 2016-11-12 23:49 | ED PDOC ---
HPI: Psych/Substance Abuse Time Seen by Provider: 11/12/16 23:13 Chief Complaint (Nursing): Alcohol Ingestion Chief Complaint (Provider): Alcohol Ingestion ED Caveat: Intoxicated (ETOH) History Per: EMS Onset/Duration Of Symptoms: Mins (prior to arrival) Current Symptoms Are (Timing): Still Present Additional Complaint(s): Karmen King is a 26 year old male, well known to the emergency department for ETOH abuse, who was brought in by EMS for alcohol intoxication. Patient unable to provide history due to current state of intoxication. PMD: none provided Past Medical History Reviewed: Historical Data, Nursing Documentation, Vital Signs Vital Signs: Last Vital Signs Temp 97.4 F L 11/12/16 23:07 Pulse 84 11/12/16 23:07 Resp 16 11/12/16 23:07 BP 118/82 11/12/16 23:07 Pulse Ox 100 11/12/16 23:07 - Medical History PMH: Anxiety, Back Problems, Depression, Fractures, Gastritis Denies: Chronic Kidney Disease - Family History Family History: States: Unknown Family Hx - Social History Current smoker - smoking cessation education provided: Yes Alcohol: > 2 Drinks/Day Drugs: Cannabis - Home Medications Home Medications: Ambulatory Orders Medication Instructions Recorded Paroxetine HCl [Paxil] 40 mg PO DAILY 07/22/16 busPIRone [Buspar] 15 mg PO HS 07/22/16 - Allergies Allergies/Adverse Reactions: Allergies Allergy/AdvReac Type Severity Reaction Status Date / Time No Known Allergies Allergy Verified 11/12/16 12:21 Review of Systems Review Of Systems: ROS cannot be obtained secondary to pt's inabilty to answer questions. (ETOH intoxication) Physical Exam - Reviewed Nursing Documentation Reviewed: Yes Vital Signs Reviewed: Yes - Physical Exam Appears: Positive for: Well (but intoxicated), Non-toxic, No Acute Distress Head Exam: Positive for: ATRAUMATIC, NORMAL INSPECTION, NORMOCEPHALIC Skin: Positive for: Normal Color Cardiovascular/Chest: Positive for: Regular Rate, Rhythm Respiratory: Positive for: Normal Breath Sounds. Negative for: Crackles, Rales , Rhonchi, Wheezing Extremity: Positive for: Normal ROM Neurologic/Psych: Positive for: Other (slurred speech). Negative for: Alert, Oriented - ECG O2 Sat by Pulse Oximetry: 100 (RA) Pulse Ox Interpretation: Normal Medical Decision Making Medical Decision Making: Initial Impression: ETOH Intoxication Initial Plan: * Alcohol serum * Accucheck * Admit to hospital Time: 0520 --Patient is awake/alert and walking with steady gait. Clinically sober to be discharged home. Clinical Impression: ETOH abuse Scribe Attestation: Documented by Blaire Quinones, acting as a scribe for Misael Sofia MD. Provider Scribe Attestation: All medical record entries made by the Scribe were at my direction and personally dictated by me. I have reviewed the chart and agree that the record accurately reflects my personal performance of the history, physical exam, medical decision making, and the department course for this patient. I have also personally directed, reviewed, and agree with the discharge instructions and disposition. ED OBSERVATION Date of observation admission: 11/12/16 Time of observation admission: 23:30 - Observation admission statement Patient is being placed in observation because:: ETOH intoxication - Goals of Observation Goals of observation are:: clinical sobriety - Progress Note Progress Note: Time: 2330 --Patient is resting comfortably with stable vital signs. Time: 0100 --Patient continues to rest comfortably. Time: 0230 --Resting comfortably with stable vitals. Time: 0400 --Resting comfortably with stable vitals. Disposition - Clinical Impression Clinical Impression: Alcohol abuse with uncomplicated intoxication - Patient ED Disposition Is Patient to be Admitted: No Doctor Will See Patient In The: Office Counseled Patient/Family Regarding: Diagnosis - Disposition Disposition: Routine/Home Disposition Time: 05:20 Condition: STABLE
[2016-11-13] MEDS ORDERED: Ammonia 2% Inhalant ONE (05:43)
== END 2016-11-13 05:29 | disposition home or self-care (01) ==
LOC: H.ER 23:05 → H.EROBSV 23:30
PROVIDERS: ADMIT Emergency Medicine; ATTEND Emergency Medicine
DX: F10.129 Alcohol abuse with intoxication, unspecified (principal); F17.200 Nicotine dependence, unspecified, uncomplicated; Z79.899 Other long term (current) drug therapy

== ENCOUNTER 2016-11-13 10:06 | Observation (INO) | payer OTHER ==
[2016-11-13 10:07] VITALS: BMI 23.6
[2016-11-13 10:26] VITALS: O2SAT 98
--- NOTE | 2016-11-13 10:30 | ED PDOC ---
HPI: Psych/Substance Abuse Time Seen by Provider: 11/13/16 10:11 Chief Complaint (Nursing): Alcohol Ingestion History Per: EMS Additional Complaint(s): Pt. was found lying outside. Found to have abrasions on L side of face. Pt. offers no complaints. Admits to drinking alcohol. Well known to ED. Past Medical History Reviewed: Historical Data, Nursing Documentation, Vital Signs Vital Signs: Last Vital Signs Temp 97.8 F 11/13/16 10:19 Pulse 76 11/13/16 10:19 Resp 17 11/13/16 10:19 BP 119/68 11/13/16 10:19 Pulse Ox 98 11/13/16 10:19 - Medical History PMH: Anxiety, Back Problems, Depression, Fractures, Gastritis Denies: Chronic Kidney Disease - Family History Family History: States: Unknown Family Hx - Home Medications Home Medications: Ambulatory Orders Medication Instructions Recorded Paroxetine HCl [Paxil] 40 mg PO DAILY 07/22/16 busPIRone [Buspar] 15 mg PO HS 07/22/16 - Allergies Allergies/Adverse Reactions: Allergies Allergy/AdvReac Type Severity Reaction Status Date / Time No Known Allergies Allergy Verified 11/12/16 12:21 Review of Systems Review Of Systems: ROS cannot be obtained secondary to pt's inabilty to answer questions. Physical Exam - Reviewed Nursing Documentation Reviewed: Yes Vital Signs Reviewed: Yes - Physical Exam Appears: Positive for: Well, Non-toxic, No Acute Distress Head Exam: Negative for: ATRAUMATIC, NORMAL INSPECTION (superficial abrasion noted to forehead, L zygomatic area with superficial abrasion), NORMOCEPHALIC Skin: Positive for: Normal Color, Warm. Negative for: Rash Eye Exam: Positive for: EOMI, Normal appearance, PERRL ENT: Positive for: Normal ENT Inspection Neck: Positive for: Normal, Painless ROM Cardiovascular/Chest: Positive for: Regular Rate, Rhythm, Chest Non Tender Respiratory: Positive for: CNT, Normal Breath Sounds Gastrointestinal/Abdominal: Positive for: Normal Exam, Bowel Sounds, Soft, Other (no ecchymosis). Negative for: Tenderness Back: Positive for: Normal Inspection, Other (no ecchymosis). Negative for: L CVA Tenderness, R CVA Tenderness, Vertebral Tenderness (including cervical spine ) Extremity: Positive for: Normal ROM Neurologic/Psych: Positive for: Alert, Other (responds to non-painful tactile stimuli). Negative for: Aphasia, Facial Droop - ECG O2 Sat by Pulse Oximetry: 98 ED OBSERVATION Discharge: Yes Date of observation admission: 11/13/16 Time of observation admission: 10:31 - Observation admission statement Patient is being placed in observation because:: ETOH - Progress Note Progress Note: 11/13/16 10:31 CT head, cervical spine, maxillofacial w/o contrast ordered. Tetanus prophylaxis ordered. FSBS: 114 11/13/16 11:13 ETOH 427 11/13/16 12:40 CT head, cervical spine, maxillofacial w/o contrast: negative. Pt. sleeping comfortably. Easily arousable to verbal stimuli. 11/13/16 15:22 No distress. Sleeping comfortably. 11/13/16 17:40 Seen eating and in no distress. Seen multiple walking to bathroom multiple times with steady gait. Pt. will be discharged. Disposition - Clinical Impression Clinical Impression: Alcohol intoxication, Head injury - Patient ED Disposition Is Patient to be Admitted: No - Disposition Disposition: Routine/Home Disposition Time: 17:40 Condition: IMPROVED
--- NOTE | 2016-11-13 11:26 | CT ---
PROCEDURE: CT HEAD WITHOUT CONTRAST. HISTORY: trauma COMPARISON: None available. TECHNIQUE: Axial computed tomography images were obtained through the head/brain without intravenous contrast. Radiation dose: Total exam DLP = 1112 mGy-cm. This CT exam was performed using one or more of the following dose reduction techniques: Automated exposure control, adjustment of the mA and/or kV according to patient size, and/or use of iterative reconstruction technique. FINDINGS: HEMORRHAGE: No intracranial hemorrhage. BRAIN: No mass effect or edema. No atrophy or chronic microvascular ischemic changes. VENTRICLES: Unremarkable. No hydrocephalus. CALVARIUM: Unremarkable. PARANASAL SINUSES: Unremarkable as visualized. No significant inflammatory changes. MASTOID AIR CELLS: Unremarkable as visualized. No inflammatory changes. OTHER FINDINGS: None. IMPRESSION: Normal CT of the Head.
--- NOTE | 2016-11-13 11:51 | CT ---
PROCEDURE: CT MAXILLOFACIAL BONES WITHOUT CONTRAST HISTORY: trauma COMPARISON: None TECHNIQUE: Contiguous axial CT images of the maxillofacial bones were obtained. Coronal and sagittal reformats were generated. Radiation dose: Total exam DLP = 717 mGy-cm. This CT exam was performed using one or more of the following dose reduction techniques: Automated exposure control, adjustment of the mA and/or kV according to patient size, and/or use of iterative reconstruction technique. FINDINGS: NASAL BONES: Unremarkable. ORBITS: Unremarkable. PARANASAL SINUSES/ MASTOIDS: Clear. MAXILLA: Unremarkable. MANDIBLE/ TEMPOROMANDIBULAR JOINTS: Unremarkable. SKULL BASE: Unremarkable. TEMPORAL BONES: Middle ears and mastoid grossly unremarkable. OTHER FINDINGS: None. IMPRESSION: Unremarkable non contrast enhanced CT of the maxillofacial bones.
--- NOTE | 2016-11-13 11:56 | CT ---
PROCEDURE: CT Cervical Spine without contrast HISTORY: <trauma> COMPARISON: None available. TECHNIQUE: Axial computed tomography images were obtained of the cervical spine without the use of intravenous contrast. Coronal and sagittal reformatted images were created and reviewed. Radiation dose: Total exam DLP = 452 mGy-cm. This CT exam was performed using one or more of the following dose reduction techniques: Automated exposure control, adjustment of the mA and/or kV according to patient size, and/or use of iterative reconstruction technique. FINDINGS: VERTEBRAE: No fracture. Normal alignment. No destructive bony lesion. DISCS/SPINAL CANAL/NEURAL FORAMINA: C6-7 right foraminal disc herniation with right foraminal stenosis. discs heights are grossly preserved. PARASPINAL SOFT TISSUES: Unremarkable. OTHER FINDINGS: None. IMPRESSION: C6-7 right foraminal disc herniation with right foraminal stenosis.
[2016-11-13 18:16] VITALS: BP 128/76; PULSE 79; RESP 18; TEMP 98.1
== END 2016-11-13 17:40 | disposition home or self-care (01) ==
LOC: H.ER 10:06 → H.EROBSV 10:22
PROVIDERS: ADMIT Emergency Medicine; ATTEND Emergency Medicine
DX: F10.129 Alcohol abuse with intoxication, unspecified (principal); S00.81XA Abrasion of other part of head, initial encounter; X58.XXXA Exposure to other specified factors, initial encounter; Z79.899 Other long term (current) drug therapy; K29.70 Gastritis, unspecified, without bleeding; F41.8 Other specified anxiety disorders

== ENCOUNTER 2016-11-18 23:12 | Observation (INO) | payer OTHER ==
[2016-11-18 23:13] VITALS: BMI 23.6
[2016-11-18] MEDS ORDERED: Multivitamin (MVI) 10 ML, Thiamine 100 MG, Folic Acid 1 MG in Sodium Chloride 0.9% 1,00... IV ONE (23:23)
--- NOTE | 2016-11-18 23:43 | ED PDOC ---
HPI: Psych/Substance Abuse Time Seen by Provider: 11/18/16 23:18 Chief Complaint (Nursing): Alcohol Ingestion Chief Complaint (Provider): etoh Additional Complaint(s): 26yo M in ED for etoh and head/facial injury. bought to ED by EMS-picked up at a bar-was told pt came into bar asking for an alcoholic drink and to speak with a campus manager, then pt became somnolent. Pt walked into bar with laceration to bridge of nose. Past Medical History Reviewed: Historical Data, Nursing Documentation, Vital Signs Vital Signs: Last Vital Signs Temp 99.1 F 11/18/16 23:14 Pulse 94 H 11/18/16 23:14 Resp 16 11/18/16 23:14 BP 107/57 L 11/18/16 23:14 Pulse Ox 95 11/18/16 23:14 - Medical History PMH: Anxiety, Back Problems, Depression, Fractures, Gastritis Denies: Chronic Kidney Disease - Family History Family History: States: Unknown Family Hx - Home Medications Home Medications: Ambulatory Orders Medication Instructions Recorded Paroxetine HCl [Paxil] 40 mg PO DAILY 07/22/16 busPIRone [Buspar] 15 mg PO HS 07/22/16 - Allergies Allergies/Adverse Reactions: Allergies Allergy/AdvReac Type Severity Reaction Status Date / Time No Known Allergies Allergy Verified 11/12/16 12:21 Review of Systems ROS Statement: Except As Marked, All Systems Reviewed And Found Negative Review Of Systems: ROS cannot be obtained secondary to pt's inabilty to answer questions. Physical Exam - Reviewed Nursing Documentation Reviewed: Yes Vital Signs Reviewed: Yes - Physical Exam Appears: Positive for: No Acute Distress Head Exam: Positive for: ATRAUMATIC (laceration .5cm to bridge of nose. ), NORMAL INSPECTION, NORMOCEPHALIC Skin: Positive for: Warm, Diaphoresis Eye Exam: Positive for: Other (no oribtal step off no hyphema no subcongivtal hemmorrage). Negative for: PERRL (pin point pupils b/l), Periorbital swelling, Periorbital tenderness, Conjunctival injection ENT: Positive for: Normal ENT Inspection, Other (no intraoral bleeding. ) Cardiovascular/Chest: Positive for: Regular Rate, Rhythm Respiratory: Positive for: CNT, Normal Breath Sounds Neurologic/Psych: Positive for: Other (somnolonet, awaken with sternal rub, otherwise not verbally responive nor follows commands. etoh noted on breath. no nystagmus no lateral gaze) - ECG O2 Sat by Pulse Oximetry: 95 - Progress ED Course And Treament: pt will require CT of head and face r/o ICH and fx. pt laceration repair-using steri strips and guaze wound dressing. labs: BAL, cbc. CMP, FS meds: banana bag IV, tetanus pt will be placed on obs ED OBSERVATION Date of observation admission: 11/18/16 Time of observation admission: 23:48 - Observation admission statement Patient is being placed in observation because:: intoxication - Goals of Observation Goals of observation are:: clinical sobriety Disposition - Clinical Impression Clinical Impression: Alcohol intoxication, Laceration - Patient ED Disposition Is Patient to be Admitted: Transfer of Care - Disposition Disposition Time: 00:00 Condition: FAIR Forms: [employer] (Bengali) Patient Signed Over To: Mariel France (sobriety)
[2016-11-18 23:57] LABS: BASO % 0.6 % (0.0-2.0); EOS # 0.2 K/uL (0.0-0.7); HEMOGLOBIN 13.7 g/dL (12.0-18.0); LYMPH # 2.2 K/uL (1.0-4.3); LYMPH % 27.6 % (20.0-40.0); MEAN CELL VOLUME 91.9 fl (80.0-94.0); MEAN CORPUSCULAR HEMOGLOBIN 31.2 pg (27.0-31.0); MEAN CORPUSCULAR HGB CONC 33.9 g/dL (33.0-37.0); MEAN PLATELET VOLUME 6.6 fl (7.2-11.7); MONO # 0.6 K/uL (0.0-0.8); MONO % 7.8 % (0.0-10.0); NEUT # 4.8 K/uL (1.8-7.0); RBC 4.38 Mil/uL (4.40-5.90); RED CELL DISTRIBUTION WIDTH 14.6 % (11.5-14.5); WHITE BLOOD COUNT 7.9 K/uL (4.8-10.8)
[2016-11-19 00:08] LABS: ALB/GLOB RATIO 1.5 (1.0-2.1); ALBUMIN 4.6 g/dL (3.5-5.0); ALT/SGPT 112 U/L (21-72); AST/SGOT 103 U/L (17-59); BLOOD UREA NITROGEN 16 mg/dl (9-20); CALCIUM 9.4 mg/dL (8.4-10.2); GFR AFRICAN-AMERICAN > 60; GFR NON-AFRICAN AMERICAN > 60
--- NOTE | 2016-11-19 00:39 | CT ---
EXAM: CT Head Without Intravenous Contrast CLINICAL HISTORY: 26 years old, male; Injury or trauma; Fall; Additional info: Facial injury ETOH TECHNIQUE: Axial computed tomography images of the head/brain without intravenous contrast. All CT scans at this facility use one or more dose reduction techniques, viz.: automated exposure control; ma/kV adjustment per patient size (including targeted exams where dose is matched to indication; i.e. head); or iterative reconstruction technique. Coronal and sagittal reformatted images were created and reviewed. COMPARISON: CT - HEAD W/O CONTRAST 11/13/2016 11:00:41 AM FINDINGS: Brain: Minimal atrophy. No intracranial hemorrhage. No mass. No edema. Ventricles: No hydrocephalus. Bones/joints: No calvarial fracture. Mastoid air cells: No mastoid effusion. IMPRESSION: 1. No intracranial hemorrhage. 2. See facial bone CT report for additional details.
--- NOTE | 2016-11-19 00:44 | CT ---
EXAM: CT Maxillofacial Without Intravenous Contrast CLINICAL HISTORY: 26 years old, male; Injury or trauma; Fall; Initial encounter; Blunt trauma (contusions or hematomas); Head/scalp; Loss of consciousness not known; Additional info: Facial injury ETOH TECHNIQUE: Axial computed tomography images of the face without intravenous contrast. All CT scans at this facility use one or more dose reduction techniques, viz.: automated exposure control; ma/kV adjustment per patient size (including targeted exams where dose is matched to indication; i.e. head); or iterative reconstruction technique. Coronal and sagittal reformatted images were created and reviewed. COMPARISON: CT - MAXILLOFACIAL W/O CONTRAST 11/13/2016 11:02:40 AM FINDINGS: Bones/joints: Nasal bone fractures, stable and likely chronic. No acute fracture. Soft tissues: Mild facial soft tissue swelling. Orbits: Unremarkable. Sinuses: Minimal to mild mucosal thickening of maxillary, ethmoid, RIGHT sphenoid sinuses. No air-fluid levels. Dental: Dental caries. IMPRESSION: 1. No acute fracture. 2. Incidental/non-acute findings are described above.
--- NOTE | 2016-11-19 01:49 | ED PDOC ---
- Laboratory Results Result Diagrams: 11/18/16 23:53 11/18/16 23:53 - ECG O2 Sat by Pulse Oximetry: 95 - Progress ED Course And Treament: Case endorsed to expert medical writer from Rosanna CARDENAS pending CT's, sobriety EXAM: CT Maxillofacial Without Intravenous Contrast CLINICAL HISTORY: 26 years old, male; Injury or trauma; Fall; Initial encounter; Blunt trauma ( contusions or hematomas); Head/scalp; Loss of consciousness not known; Additional info: Facial injury ETOH TECHNIQUE: Axial computed tomography images of the face without intravenous contrast. All CT scans at this facility use one or more dose reduction techniques, viz.: automated exposure control; ma/kV adjustment per patient size (including targeted exams where dose is matched to indication; i.e. head); or iterative reconstruction technique. Coronal and sagittal reformatted images were created and reviewed. COMPARISON: CT - MAXILLOFACIAL W/O CONTRAST 11/13/2016 11:02:40 AM FINDINGS: Bones/joints: Nasal bone fractures, stable and likely chronic. No acute fracture. Soft tissues: Mild facial soft tissue swelling. Orbits: Unremarkable. Sinuses: Minimal to mild mucosal thickening of maxillary, ethmoid, RIGHT sphenoid sinuses. No air-fluid levels. Dental: Dental caries. IMPRESSION: 1. No acute fracture. 2. Incidental/non-acute findings are described above. EXAM: CT Head Without Intravenous Contrast CLINICAL HISTORY: 26 years old, male; Injury or trauma; Fall; Additional info: Facial injury ETOH TECHNIQUE: Axial computed tomography images of the head/brain without intravenous contrast. All CT scans at this facility use one or more dose reduction techniques, viz.: automated exposure control; ma/kV adjustment per patient size (including targeted exams where dose is matched to indication; i.e. head); or iterative reconstruction technique. Coronal and sagittal reformatted images were created and reviewed. COMPARISON: CT - HEAD W/O CONTRAST 11/13/2016 11:00:41 AM FINDINGS: Brain: Minimal atrophy. No intracranial hemorrhage. No mass. No edema. Ventricles: No hydrocephalus. Bones/joints: No calvarial fracture. Mastoid air cells: No mastoid effusion. IMPRESSION: 1. No intracranial hemorrhage. 2. See facial bone CT report for additional details 1:30 Patient sleeping; no distress 3:00 patient sleeping; no distress 4:300 Patient sleeping; no distress 6:00 Patient awake, alert, oriented x3. Ambulating steady gait. Stable for discharge Disposition - Clinical Impression Clinical Impression: Alcohol intoxication, Laceration - POA Present On Arrival: Falls Or Trauma - Disposition Disposition: Routine/Home Disposition Time: 06:00 Condition: STABLE
[2016-11-19 06:09] VITALS: BP 111/57; PULSE 77; RESP 18; TEMP 97.8
[2016-11-23 05:40] VITALS: O2SAT 95
== END 2016-11-19 06:34 | disposition home or self-care (01) ==
LOC: H.ER 23:12 → H.EROBSV 23:50
PROVIDERS: ADMIT Emergency Medicine; ATTEND Emergency Medicine
DX: F10.129 Alcohol abuse with intoxication, unspecified (principal); S01.21XA Laceration without foreign body of nose, initial encounter; W18.39XA Other fall on same level, initial encounter; Y93.9 Activity, unspecified; Y92.511 Restaurant or cafe as the place of occurrence of the external cause; Y99.9 Unspecified external cause status

== ENCOUNTER 2017-05-12 20:48 | Emergency (ER) | payer MEDICAID, OTHER ==
[2017-05-12 20:48] VITALS: BMI 23.6
[2017-05-12 20:55] VITALS: RESP 17
--- NOTE | 2017-05-13 00:25 | ED PDOC ---
HPI: General Adult Time Seen by Provider: 05/12/17 21:16 Chief Complaint (Nursing): Alcohol Ingestion History Per: EMS History/Exam Limitations: intoxication Additional Complaint(s): Pt. found outside sleeping and was hard to arouse. Admits to drinking alcohol. Offers no complaints. Past Medical History Reviewed: Historical Data, Nursing Documentation, Vital Signs Vital Signs: Last Vital Signs Temp 98.6 F 05/12/17 20:52 Pulse 96 H 05/12/17 20:52 Resp 17 05/12/17 20:52 BP 116/67 05/12/17 20:52 Pulse Ox 97 05/12/17 20:52 - Medical History PMH: Anxiety, Back Problems, Depression, Fractures, Gastritis Denies: Chronic Kidney Disease - Family History Family History: States: Unknown Family Hx - Immunization History Hx Tetanus Toxoid Vaccination: No - Home Medications Home Medications: Ambulatory Orders Medication Instructions Recorded Unobtainable 11/20/16 - Allergies Allergies/Adverse Reactions: Allergies Allergy/AdvReac Type Severity Reaction Status Date / Time No Known Allergies Allergy Verified 05/12/17 20:52 Review of Systems Review Of Systems: ROS cannot be obtained secondary to pt's inabilty to answer questions. Physical Exam - Reviewed Nursing Documentation Reviewed: Yes Vital Signs Reviewed: Yes - Physical Exam Appears: Positive for: Well, Non-toxic, No Acute Distress Head Exam: Positive for: ATRAUMATIC, NORMAL INSPECTION, NORMOCEPHALIC Skin: Positive for: Normal Color, Warm. Negative for: Rash Eye Exam: Positive for: EOMI, Normal appearance, PERRL ENT: Positive for: Normal ENT Inspection Neck: Positive for: Normal, Painless ROM Cardiovascular/Chest: Positive for: Regular Rate, Rhythm Respiratory: Positive for: CNT, Normal Breath Sounds Gastrointestinal/Abdominal: Positive for: Normal Exam, Soft. Negative for: Tenderness Back: Positive for: Normal Inspection. Negative for: L CVA Tenderness, R CVA Tenderness, Vertebral Tenderness Extremity: Positive for: Normal ROM Neurologic/Psych: Positive for: Alert, Other (AOB; slurred speech). Negative for: Aphasia, Facial Droop - ECG O2 Sat by Pulse Oximetry: 97 - Progress ED Course And Treament: Labs ordered. FSBS ordered. Disposition - Clinical Impression Clinical Impression: Alcohol abuse with intoxication - Patient ED Disposition Is Patient to be Admitted: Transfer of Care (Signed out to Lazaro CARDENAS pending sobriety.) - Disposition Disposition Time: 00:00 Condition: STABLE
--- NOTE | 2017-05-13 03:59 | ED PDOC ---
- ECG O2 Sat by Pulse Oximetry: 97 Medical Decision Making Medical Decision Makin Patient endorsed to me from THERESA Hsu pending sobriety. 0130 Patient is sleeping comfortably, vitals stable. Etoh level 281. 0300 Patient is sleeping comfortably, vitals stable. 0430 Patient is awake, alert, and ambulating steadily. Advised to follow up with primary care physician or the clinic in 1-2 days without fail. Return to the emergency room at any time for any new or worsening symptoms. Patient states he fully agrees with and understands discharge instructions. States that he agrees with the plan and disposition. Verbalized and repeated discharge instructions and plan. I have given the patient opportunity to ask any additional questions. Disposition Counseled Patient/Family Regarding: Studies Performed, Diagnosis, Need For Followup - Clinical Impression Clinical Impression: Alcohol abuse with intoxication - POA Present On Arrival: None - Disposition Referrals: [facility] [Outside] Disposition: Routine/Home Disposition Time: 04:30 Condition: STABLE Instructions: Alcohol Intoxication (ED) Forms: [employer] (Salvadorean) - PA / MAINFRAME APPLICATIONS DEVELOPER / Resident Statement MD/DO has reviewed & agrees with the documentation as recorded.
[2017-05-13 06:17] VITALS: BP 137/82; PULSE 86; TEMP 97.9; O2SAT 99
== END 2017-05-13 05:55 | disposition home or self-care (01) ==
LOC: H.ER 20:48
DX: F10.129 Alcohol abuse with intoxication, unspecified (principal); F32.9 Major depressive disorder, single episode, unspecified; F41.9 Anxiety disorder, unspecified